=== PATIENT | female | born 1985 | race Caucasian/White ===

== ENCOUNTER 2017-09-04 15:45 | Outpatient (CLI) | payer MEDICAID ==
[~2017-09-04] VITALS: Ht 170.2 cm; Wt 83.2 kg
[~2017-09-04 15:45] MED LIST: ACET1TAB43 PO; ACHD5005 PO; ACHYD1T PO; CELEXA; CIPR500T4 PO; CITA20TA7 PO; CLC500CT PO; CYAN500T2 PO; IBP800T PO; IBUP-1780 PO; MELO7.5T46 PO; MOBIC; NAPR-243 PO; ONDA8TAB6 PO; PEDI100T PO; PREN-115 PO; RNT150T PO
[2017-09-04] MEDS ORDERED: HYDR-3820 PO (16:00)
[2017-09-04] MEDS ORDERED: URSO300C3 PO (16:00)
[2017-09-04] MEDS ORDERED: HYDR-700 PO (16:00)
[2017-09-04] MEDS ORDERED: RANI150T15 PO (16:00)
[2017-09-04] MEDS ORDERED: RIZA5TAB32 PO (16:04)
[2017-09-04 16:05] VITALS: BP 134/86
[2017-09-05] MEDS ORDERED: OXYC-202 PO (11:47)
== END 2017-09-04 16:55 | disposition home or self-care (01) ==
LOC: PREOP 15:45
PROVIDERS: ATTEND Obstetrics & Gynecology
DX: Z01.818 Encounter for other preprocedural examination (principal); Z11.2 Encounter for screening for other bacterial diseases; O32.1XX0 Maternal care for breech presentation, not applicable or unspecified
CPT/HCPCS: 87081

== ENCOUNTER 2017-09-05 05:07 | Inpatient (IN) | payer MEDICAID ==
[~2017-09-05] VITALS: Ht 170.2 cm; Wt 82.3 kg
[~2017-09-05 05:07] MED LIST changes: +HYDR-3820 PO; +HYDR-700 PO; +RANI150T15 PO; +RIZA5TAB32 PO; +URSO300C3 PO
[2017-09-05] MEDS ORDERED: ceFAZolin 2 GM/50 ML NS 50 ML ONE (10:14)
[2017-09-05] MEDS ORDERED: LACTATED RINGERS 1,000 ML IV ONE (10:14)
[2017-09-05] MEDS ORDERED: metroNIDAZOLE 500MG/100ML IVPB 100 ML ONE (10:14)
[2017-09-05] MEDS ORDERED: CITRIC ACID/SOB CIT (BICITRA) 30 ML UDC ONE (10:14)
[2017-09-05] MEDS ORDERED: FAMOTIDINE 20MG/2ML IV (PEPCID) ONE (10:14)
[2017-09-05] MEDS ORDERED: METOCLOPRAMIDE INJ 10 MG/2 ML (REGLAN) ONE (10:14)
[2017-09-05 10:23] VITALS: BP 125/79
[2017-09-05] MEDS ORDERED: ceFAZolin 2 GM/50 ML NS 50 ML IV ONE (11:15)
[2017-09-05] MEDS ORDERED: METOCLOPRAMIDE INJ 10 MG/2 ML (REGLAN) IV ONE (11:15)
[2017-09-05] MEDS ORDERED: CATHETER FLUSH 10 ML SYR IV PRN (11:15)
[2017-09-05] MEDS ORDERED: CITRIC ACID/SOB CIT (BICITRA) 30 ML UDC PO ONE (11:15)
[2017-09-05] MEDS ORDERED: FAMOTIDINE 20MG/2ML IV (PEPCID) IV ONE (11:15)
[2017-09-05] MEDS ORDERED: metroNIDAZOLE 500MG/100ML IVPB 100 ML IV ONE (11:15)
[2017-09-05] MEDS: LACTATED RINGERS 1,000 ML IV PRN ×2 (11:16→11:53)
[2017-09-05 11:44] LABS: BASOPHILS % (AUTO) 0 % (0-10); EOSINOPHILS % (AUTO) 0 % (0-10); LYMPHOCYTES # (AUTO) 3.2 X 10^3 (1.0-4.0); LYMPHOCYTES % (AUTO) 47 % (12-44); MEAN CORPUSCULAR HEMOGLOBIN 31 PG (25-34); MEAN CORPUSCULAR HGB CONC 34 G/DL (32-36); MEAN CORPUSCULAR VOLUME 90 FL (80-99); MEAN PLATELET VOLUME 12.5 FL (7.4-10.4); MONOCYTES # (AUTO) 0.8 X 10^3 (0.0-1.0); MONOCYTES % (AUTO) 11 % (0-12); NEUTROPHILS # (AUTO) 2.8 X 10^3 (1.8-7.8); NEUTROPHILS % (AUTO) 42 % (42-75); PLATELET COUNT 130 10^3/uL (130-400); RED BLOOD COUNT 3.82 10^6/uL (4.35-5.85); RED CELL DISTRIBUTION WIDTH 13.7 % (10.0-14.5); WHITE BLOOD COUNT 6.8 10^3/uL (4.3-11.0)
[2017-09-05] MEDS ORDERED: ONDANSETRON 4 MG/2 ML (SDV) Z0FRAN IVP PRN ×2 (11:45→13:15)
[2017-09-05] MEDS ORDERED: TETANUS,DIPTH,PERTUSS P/F (BOOSTRIX) 0.5 ML VIAL IM ONE (11:45)
[2017-09-05] MEDS ORDERED: PROMETHAZINE INJ 25 MG/ML (PHENERGAN) AMP IM PRN (11:45)
[2017-09-05] MEDS ORDERED: MEPERIDINE (DEMEROL) INJ 100 MG/ML IM PRN (11:45)
[2017-09-05] MEDS ORDERED: MEASLES,MUMPS,RUBELLA 1 EA INJ SC ONE (11:45)
[2017-09-05] MEDS ORDERED: OXYC-202 PO (11:47)
[2017-09-05] MEDS ORDERED: D5 LR IV SOLUTION 1,000 ML IV ONE (11:52)
[2017-09-05] MEDS ORDERED: fentaNYL INJECTION 100 MCG/2 ML AMP ONE (11:55)
--- NOTE | 2017-09-05 11:56 | History & Physical ---
History and Physical Date Seen by Provider: Sep 05, 2017 Time Seen by Provider: 11:50 this patient is a 31-year-old G7 [id number] female with a due date of September 17, 2017. That position at 38 weeks gestation. Her is complicated by hepatitis C with mildly elevated liver enzymes. She had an abnormal tetra test with a DSR of 1 in 30. bunch trimmer mold consult was obtained with the suggestion that this was unlikely to have Down syndrome irritation also has been complicated with polyhydramnios. She presents now for delivery and as her fetus is breech plan is for a primary . GBS culture was negative. Patient denies ruptured membranes or bleeding. Allergies to naproxen haven't patient can take Motrin Medications are vitamins . nausea medicine , Percocet when necessary pain due to poor dentition S medical history, past surgical history, obstetric history, family history, and social issues are present for and recommended HEENT exam is normal Neck is supple no lymphadenopathy no thyromegaly Abdomen gravid soft nontender nondistended Extremities show no clubbing cyanosis. There is no Homans sign. Exam is deferred Bedside ultrasound confirmed breech presentation appearing to be double footling Lab is as follows Laboratory Tests Test 09/05/17 10:20 09/05/17 11:33 Range/Units Urine Opiates Screen NEGATIVE NEGATIVE Urine Oxycodone Screen POSITIVE H NEGATIVE Urine Methadone Screen NEGATIVE NEGATIVE Urine Propoxyphene Screen NEGATIVE NEGATIVE Urine Barbiturates Screen NEGATIVE NEGATIVE Ur Tricyclic Antidepressants Screen NEGATIVE NEGATIVE Urine Phencyclidine Screen NEGATIVE NEGATIVE Urine Amphetamines Screen NEGATIVE NEGATIVE Urine Methamphetamines Screen NEGATIVE NEGATIVE Urine Benzodiazepines Screen NEGATIVE NEGATIVE Urine Cocaine Screen NEGATIVE NEGATIVE Urine Cannabinoids Screen NEGATIVE NEGATIVE White Blood Count 6.8 4.3-11.0 10^3/uL Red Blood Count 3.82 L 4.35-5.85 10^6/uL Hemoglobin 11.7 11.5-16.0 G/DL Hematocrit 34 L 35-52 % Mean Corpuscular Volume 90 80-99 FL Mean Corpuscular Hemoglobin 31 25-34 PG Mean Corpuscular Hemoglobin Concent 34 32-36 G/DL Red Cell Distribution Width 13.7 10.0-14.5 % Platelet Count 130 130-400 10^3/uL Mean Platelet Volume 12.5 H 7.4-10.4 FL Neutrophils (%) (Auto) 42 42-75 % Lymphocytes (%) (Auto) 47 H 12-44 % Monocytes (%) (Auto) 11 0-12 % Eosinophils (%) (Auto) 0 0-10 % Basophils (%) (Auto) 0 0-10 % Neutrophils # (Auto) 2.8 1.8-7.8 X 10^3 Lymphocytes # (Auto) 3.2 1.0-4.0 X 10^3 Monocytes # (Auto) 0.8 0.0-1.0 X 10^3 Eosinophils # (Auto) 0.0 0.0-0.3 10^3/uL Basophils # (Auto) 0.0 0.0-0.1 10^3/uL assessment and plan Term at 38 weeks gestation and complicated by polyhydramnios hepatitis C malpresentation. Patient has requested removal of her fallopian tubes to decrease her lifetime risk for pelvic cancer. Has been fully discussed prior to admission today. Patient does plan the loss of fertility with salpingectomies and she accepts that undesired side effect. 38 week with previous diagnosis of hepatitis C and with breech presentation and unexplained abnormal tetra test Allergies and Home Medications Allergies Coded Allergies: naproxen (Verified Adverse Reaction, Mild, NAUSEA/SHAKEY, 09/04/17) Home Medications Hydroxyzine HCl 25 Mg Tablet, 25 MG PO DAILY, (Reported) Oxycodone HCl/Acetaminophen 1 Each Tablet, 1-2 EACH PO Q4H, (Reported) Ranitidine HCl 150 Mg Tablet, 150 MG PO BID, (Reported) Rizatriptan Benzoate 5 Mg Tablet, 5 MG PO PRN, (Reported) Ursodiol 300 Mg Capsule, 300 MG PO BID, (Reported) JIMMY BERNAL MD Sep 05, 2017 11:56 am
[2017-09-05 12:00] VITALS: BP 130/75
[2017-09-05 12:04] LABS: ALANINE AMINOTRANSFERASE 63 U/L (0-55); ALBUMIN 2.7 GM/DL (3.2-4.5); ANION GAP 7 MMOL/L (5-14); ASPARTATE AMINO TRANSFERASE 156 U/L (5-34); BILIRUBIN,TOTAL 0.6 MG/DL (0.1-1.0); BLOOD UREA NITROGEN 7 MG/DL (7-18); BUN/CREATININE RATIO 14; CALCIUM 8.2 MG/DL (8.5-10.1); CARBON DIOXIDE 22 MMOL/L (21-32); CHLORIDE 108 MMOL/L (98-107); CREATININE SERUM 0.51 MG/DL (0.60-1.30); GFR ESTIMATED > 60; GLUCOSE 68 MG/DL (70-105); POTASSIUM 3.9 MMOL/L (3.6-5.0); SODIUM 137 MMOL/L (135-145); TOTAL PROTEIN 6.5 GM/DL (6.4-8.2)
[2017-09-05] MEDS ORDERED: KETOROLAC 30 MG/ML VIAL ONE ×2 (12:05→12:54)
[2017-09-05] MEDS ORDERED: OXYTOCIN/NORMAL SALINE 500 ML IV ONE (12:05)
[2017-09-05] MEDS ORDERED: ONDANSETRON 4 MG/2 ML (SDV) Z0FRAN ONE ×2 (12:05→12:54)
[2017-09-05] MEDS ORDERED: morphine INJ 10 MG/ML 1ML (SYR OR VIAL) ONE (12:48)
[2017-09-05] MEDS ORDERED: PHENYLEPHRINE 100 MCG/ML 10 ML (ANESTHESIA) SYR ONE (12:54)
[2017-09-05] MEDS ORDERED: diphenhydrAMINE 50 MG/ML INJ (BENADRYL) ONE (12:54)
[2017-09-05] MEDS: KETOROLAC 30 MG/ML VIAL IVP SCH ×2 (13:00→18:57)
[2017-09-05] MEDS: OXYTOCIN/NORMAL SALINE 500 ML IV SCH ×2 (13:00→16:42)
[2017-09-05] MEDS ORDERED: ONDANSETRON 4 MG/2 ML (SDV) Z0FRAN IV PRN (13:15)
[2017-09-05] MEDS ORDERED: METOCLOPRAMIDE INJ 10 MG/2 ML (REGLAN) IV PRN (13:15)
[2017-09-05] MEDS ORDERED: diphenhydrAMINE 50 MG/ML INJ (BENADRYL) IV PRN (13:15)
[2017-09-05] MEDS ORDERED: INFLUENZA TRIvalent 2017-2018 0.5 ML/45 MCG SYR IM ONE (13:15)
[2017-09-05] MEDS ORDERED: NALOXONE 0.4 MG/ML 1 ML (NARCAN) VIAL IV PRN ×2 (13:15)
[2017-09-05 15:45] VITALS: BP 126/71
[2017-09-05] MEDS ORDERED: NICOTINE 21 MG (NICODERM) PATCH TD PRN (16:00)
[2017-09-05] MEDS: oxyCODONE/APAP 10/325MG (PERCOCET 10) TABLET PO PRN (16:42)
[2017-09-05] MEDS ORDERED: NICOTINE PATCH REMOVAL TP PRN (18:00)
[2017-09-05 21:45] VITALS: BP 133/75
--- NOTE | 2017-09-05 22:53 | OPERATIVE REPORT ---
DATE OF SERVICE: 09/05/2017 PREOPERATIVE DIAGNOSIS: Term at 38 weeks' gestation with oligohydramnios, breech presentation, history of Hepatitis C, request for risk reducing salpingectomy. POSTOPERATIVE DIAGNOSIS: Term at 38 weeks' gestation with oligohydramnios, breech presentation, history of Hepatitis C, request for risk reducing salpingectomy. OPERATIVE PROCEDURE: Primary low transverse delivery of a viable male with Apgars of 8 and 8 at 1 and 5 minutes respectively. Weight is 6 pounds 7 ounces. Cord blood pH of 7.32 and a time 1224 as well as bilateral salpingectomies for reduction of ovarian cancer risk. OPERATIVE DESCRIPTION: With the patient in supine position under satisfactory spinal anesthesia, she was prepped and draped in the usual fashion for abdominal surgery. Torre catheter was placed in the urinary bladder and left to dependent drainage. A Pfannenstiel incision made through the skin with a scalpel. The patient's abdomen entered in the usual manner. Bladder retractor placed in position, clean scalpel used to make a 4 cm hysterotomy incision transversally across the lower uterine segment that was extended by blunt dissection as well. A small amount of fairly moderately meconium stained fluid was released on hysterotomy. A vigorous viable male infant was delivered via the uterine incision from a robyn breech position in the usual manner for that delivery. The delivery was atraumatic. The infant was bulb suctioned on delivery, the cord was doubly clamped and cut and the passed to the pediatric nurse in attendance for delivery. Cord bloods were obtained. The placenta delivered spontaneously Verdin. It was normal with a 3-vessel cord. The uterus was exteriorized anterior and wiped clean with a wet laparotomy sponge. Uterine incision closed with a running lock suture of 2-0 Vicryl. Hemostasis was complete. The patient had requested that her fallopian tube be removed concurrent with this procedure as the opportunity presented itself for risk reducing salpingectomy. That had been fully discussed and the patient did at this point request that we proceed. The left fallopian tube was grasped and elevated. The mesosalpinx was divided with electrocautery and then the proximal tube was ligated with a 2-0 chromic gut suture. The distal attachment to the ovary was ligated in the same manner. Then, the fallopian tube was removed sharply and sent to pathology labeled appropriately for permanent section. The same procedure was performed on the right with the same result. The uterus was now returned to the abdominal cavity. All blood clot and debris removed from the abdominal cavity. Sponge and needle counts correct, hemostasis assured. The anterior parietal peritoneum was closed with a running suture of 2-0 Vicryl. Rectus muscles were closed with that suture as well rectus fascia was closed with 2-0 Vicryl, subcutaneous tissue with 2-0 Vicryl and the skin was stapled. Sponge and needle counts were correct. At the end of the procedure estimated blood loss for procedure was around 400 mL. The patient tolerated the procedure well and was transferred to the recovery room in stable condition. The had been taken stable to the full term nursery under the care of the pediatric nurse. Job ID: [id number] DocumentID: [id number] Dictated Date: 09/05/2017 13:33:28 Grooming Assistant Date: 09/05/2017 22:52:58 Dictated By: JIMMY BERNAL MD
[2017-09-06 00:40] VITALS: BP 124/77
[2017-09-06] MEDS: oxyCODONE/APAP 10/325MG (PERCOCET 10) TABLET PO PRN ×4 (00:45→21:35)
[2017-09-06] MEDS: KETOROLAC 30 MG/ML VIAL IVP SCH (00:45)
[2017-09-06] MEDS: DOCUSATE SODIUM 100 MG (COLACE) CAP PO SCH ×3 (00:45→21:34)
[2017-09-06 05:30] VITALS: BP 139/78
[2017-09-06] MEDS ORDERED: IBUPROFEN 800 MG (MOTRIN) TAB PO ONE (07:00)
[2017-09-06] MEDS: IBUPROFEN 800 MG (MOTRIN) TAB PO SCH ×3 (07:02→21:34)
--- NOTE | 2017-09-06 07:55 | Progress Note-Standard ---
Standard Progress Note Progress Notes/Assess & Plan Date Seen by Provider: Sep 06, 2017 Time Seen by Provider: 07:53 Progress/Assessment & Plan this patient is without complaint. She is ablating, voiding, tolerating by mouth, has good pain control. She she does have some chest pain as is common after , denies shortness of breath, denies nausea vomiting, denies headache. Vital Signs Date Time Temp Pulse Resp B/P (MAP) Pulse Ox O2 Delivery O2 Flow Rate FiO2 09/06/17 05:30 97.9 65 18 139/78 (98) 97 Room Air 09/06/17 00:40 98.1 78 18 124/77 (93) 97 Room Air 09/05/17 21:45 98.6 80 18 133/75 (94) 97 Room Air 09/05/17 16:19 Room Air 09/05/17 15:45 99.2 72 18 126/71 (89) Room Air 09/05/17 12:00 74 18 130/75 (93) Room Air 09/05/17 10:23 98.2 77 18 125/79 (94) Room Air I & O 09/06/17 07:00 Intake Total 2755 ml Output Total 2050 ml Balance 705 ml vital signs are stable. Patient is afebrile. The abdomen is benign. The surgical incision is clean dry and intact. Extremities show clubbing cyanosis. There is no Homans sign. Assessment and plan postoperative day number 1 status post primary delivery doing well plan is for routine convalescence care today JIMMY BERNAL MD Sep 06, 2017 7:55 am
[2017-09-06 09:01] VITALS: BP 142/72
[2017-09-06 12:44] VITALS: BP 140/81
--- NOTE | 2017-09-06 13:24 | Anesthesia-Regional Post-Op ---
Regional Patient Condition Mental Status: Alert, Oriented x3 Circulation: Same as Pre-Op Headache: Absent Sensation: Full Recovery Motor Block: Absent Post Op Complications Complications None Follow Up Care/Instructions Patient Instructions None needed. Anesthesia/Patient Condition Patient is doing well, no complaints, stable vital signs, no apparent adverse anesthesia problems. No complications reported per nursing. MICHELLE PATE CRNA Sep 06, 2017 13:24
[2017-09-06 14:40] VITALS: BP 128/82
[2017-09-06 21:30] VITALS: BP 136/78
[2017-09-07 03:55] VITALS: BP 131/74
[2017-09-07] MEDS: IBUPROFEN 800 MG (MOTRIN) TAB PO SCH ×2 (03:57→14:51)
[2017-09-07 08:00] VITALS: BP 128/70
--- NOTE | 2017-09-07 08:16 | Progress Note-Standard ---
Standard Progress Note Progress Notes/Assess & Plan Date Seen by Provider: Sep 07, 2017 Time Seen by Provider: 08:15 Progress/Assessment & Plan this patient is without complaint. She is ablating, voiding, tolerating by mouth, has good pain control. She she does have some chest pain as is common after , denies shortness of breath, denies nausea vomiting, denies headache. Vital Signs Date Time Temp Pulse Resp B/P (MAP) Pulse Ox O2 Delivery O2 Flow Rate FiO2 09/06/17 05:30 97.9 65 18 139/78 (98) 97 Room Air 09/06/17 00:40 98.1 78 18 124/77 (93) 97 Room Air 09/05/17 21:45 98.6 80 18 133/75 (94) 97 Room Air 09/05/17 16:19 Room Air 09/05/17 15:45 99.2 72 18 126/71 (89) Room Air 09/05/17 12:00 74 18 130/75 (93) Room Air 09/05/17 10:23 98.2 77 18 125/79 (94) Room Air I & O 09/06/17 07:00 Intake Total 2755 ml Output Total 2050 ml Balance 705 ml vital signs are stable. Patient is afebrile. The abdomen is benign. The surgical incision is clean dry and intact. Extremities show clubbing cyanosis. There is no Homans sign. Assessment and plan postoperative day number 1 status post primary delivery doing well plan is for routine convalescence care today September 07, 2017 Patient without complaint. She is requesting discharge home. Vital Signs Date Time Temp Pulse Resp B/P (MAP) Pulse Ox O2 Delivery O2 Flow Rate FiO2 09/07/17 03:55 97.6 81 18 131/74 (93) 99 Room Air 09/06/17 21:30 98.0 73 18 136/78 (97) 99 Room Air 09/06/17 14:40 97.6 70 18 128/82 (97) 97 Room Air 09/06/17 12:44 97.6 70 20 140/81 (100) 98 Room Air 09/06/17 09:01 98.6 72 18 142/72 (95) 99 Room Air Vital signs are stable. Patient is afebrile. Fundus is firm below the umbilicus and nontender. The incision is clean dry and intact. Extremities show no clubbing or cyanosis. There is no Homans sign. Assessment and plan postoperative day number 2 status post repeat and RRS doing well. Plan is for discharge home JIMMY BERNAL MD Sep 07, 2017 8:16 am
[2017-09-07] MEDS ORDERED: DOCU100C37 PO (08:17)
[2017-09-07] MEDS ORDERED: IBUP-1780 PO (08:17)
[2017-09-07] MEDS ORDERED: OXYC-465 PO (08:17)
--- NOTE | 2017-09-07 08:19 | Discharge Instructions ---
Discharge Instructions Discharge Medications New, Converted or Re-Newed RX: RX on Chart Patient Instructions Patient Instructions: as directed Return to The Hospital For: as directed Activity & Diet Discharge Diet: No Restrictions Activity as Tolerated: No Orders-Post D/C & Referrals Follow Up Appt: RTC on , September 13, 2017 at 930 a.m. for incision check. Call to make follow up appt. for patient in 4 weeks. follow-up with PCP in 1 month's for management of hepatitis Wound Care: Remove brennan, apply benzoin and steri strips. Activity Per routine post instructions. Please call in RX to patient pharmacy. Diet as tolerated Patient may shower or tub bathe as desired. Continue home meds JIMMY BERNAL MD Sep 07, 2017 8:19 am
[2017-09-07] MEDS ORDERED: INFLUENZA TRIvalent 2017-2018 0.5 ML/45 MCG SYR IM ONE (08:48)
[2017-09-07] MEDS ORDERED: TETANUS,DIPTH,PERTUSS P/F (BOOSTRIX) 0.5 ML VIAL IM ONE (08:49)
[2017-09-07] MEDS: DOCUSATE SODIUM 100 MG (COLACE) CAP PO SCH (09:03)
[2017-09-07] MEDS: oxyCODONE/APAP 10/325MG (PERCOCET 10) TABLET PO PRN ×2 (09:04→14:59)
[2017-09-07 14:30] VITALS: BP 141/80
[2017-09-07 18:15] VITALS: BP 141/80
== END 2017-09-07 18:15 | disposition home or self-care (01) | DRG 765 ==
LOC: LDRP 10:08
PROVIDERS: ADMIT Obstetrics & Gynecology; ATTEND Obstetrics & Gynecology
PROC: 0UT70ZZ Resection of Bilateral Fallopian Tubes, Open Approach (ICD-10-PCS; 2017-09-05)
PROC: 10D00Z1 Extraction of Products of Conception, Low, Open Approach (ICD-10-PCS; principal; 2017-09-05 12:03)
DX: O41.03X0 Oligohydramnios, third trimester, not applicable or unspecified (principal); O98.43 Viral hepatitis complicating the puerperium; O64.8XX0 Obstructed labor due to other malposition and malpresentation, not applicable or unspecified; B19.20 Unspecified viral hepatitis C without hepatic coma; Z3A.38 38 weeks gestation of pregnancy; Z37.0 Single live birth; Z23 Encounter for immunization
CPT/HCPCS: 36415; 80053; 80306; 85025; 86850; 86900; 86901; 90715; 94664

== ENCOUNTER 2018-08-02 11:53 | Emergency (ER) | payer MEDICAID ==
[~2018-08-02] VITALS: Ht 170.2 cm; Wt 66.0 kg
[~2018-08-02 11:53] MED LIST changes: +CEPH500T PO; -CITA20TA7 PO; +CITA20TA9 PO; +DOCU100C37 PO; +OXYC-465 PO; +OXYC1TAB12 PO; -RANI150T15 PO; +RANI150T46 PO
[2018-08-02] MEDS ORDERED: NS IV 1000 ML 1,000 ML IV STA (12:43)
--- NOTE | 2018-08-02 12:57 | ED Headache ---
General Chief Complaint: Head/Cervical Problems Stated Complaint: MIGRAINE Nursing Triage Note: PT STATES HX OF MIGRAINES, HEADACHE SINCE 0800 THIS A.M. NORMALLY DOES NOT COME TO THE ER, PAIN IN THE BACK OF HER NECK AND TEMPLES, N/V. Nursing Sepsis Screen: No Definite Risk Source: patient Exam Limitations: no limitations History of Present Illness Date Seen by Provider: Aug 02, 2018 Time Seen by Provider: 12:56 Initial Comments To ER with reports of left-sided headache in the congregational and neck. Typically her headaches are only in the congregational. She does have associated photophobia and nausea and vomiting. She tried her Imitrex at home without relief. Timing/Duration: 4-6 hours Severity/Quality: moderate Location: temporal, other Associated Symptoms: nausea/vomiting Allergies and Home Medications Allergies Coded Allergies: naproxen (Verified Adverse Reaction, Mild, NAUSEA/SHAKEY, 09/04/17) Home Medications Cephalexin 500 Mg Tablet, 500 MG PO BID Prescribed by: NAVYA LO on 05/10/18 2333 Docusate Sodium 100 Mg Capsule, 100 MG PO BID Prescribed by: JIMMY BRANTLEY on 09/07/17 0817 Hydroxyzine HCl 25 Mg Tablet, 25 MG PO DAILY, (Reported) Ibuprofen 800 Mg Tablet, 800 MG PO Q6H Prescribed by: JIMMY BRANTLEY on 09/07/17 0817 Oxycodone HCl/Acetaminophen 1 Each Tablet, 1-2 TAB PO Q4HR PRN for PAIN- MODERATE TO SEVERE Prescribed by: JIMMY BRANTLEY on 09/07/17 0817 Ranitidine HCl 150 Mg Tablet, 150 MG PO BID, (Reported) Rizatriptan Benzoate 5 Mg Tablet, 5 MG PO PRN, (Reported) Patient Home Medication List Home Medication List Reviewed: Yes Review of Systems Review of Systems Constitutional: see HPI Eyes: No Symptoms Reported Ears, Nose, Mouth, Throat: no symptoms reported Respiratory: no symptoms reported Cardiovascular: no symptoms reported Gastrointestinal: nausea, vomiting Genitourinary: no symptoms reported Psychiatric/Neurological: Headache Past Slkrrai-Scueat-Gzcnrf Hx Patient Social History Alcohol Use: Denies Use Recreational Drug Use: No Type Used: Cigarettes Recent Foreign Travel: No Contact w/Someone Who Travel: No Recent Infectious Disease Expo: No Recent Hopitalizations: No Immunizations Up To Date Tetanus Booster (TDap): Unknown PED Vaccines UTD: Yes Date of Influenza Vaccine: Sep 07, 2017 Seasonal Allergies Seasonal Allergies: No Past Medical History Surgeries: Yes Adenoidectomy, Appendectomy, Section, Tonsillectomy Respiratory: No Currently Using CPAP: No Currently Using BIPAP: No Cardiac: No Neurological: Yes Headaches /Migraines : No Last Menstrual Period: Jul 17, 2018 Reproductive Disorders: No Female Reproductive Disorders: Denies Sexually Transmitted Disease: No HIV/AIDS: No Genitourinary: Yes (HX SEPSIS 2016) Kidney Infection Gastrointestinal: Yes (HEPATITIS C) Gastroesophageal Reflux, Chronic Constipation, Hepatitis Musculoskeletal: Yes Scoliosis, Chronic Back Pain Endocrine: No HEENT: Yes (GLASSES) Loss of Vision: Denies Hearing Impairment: Denies Cancer: No Psychosocial: Yes Anxiety, Depression Integumentary: No Blood Disorders: No Adverse Reaction/Blood Tranf: No (N/A) Family Medical History Asthma 19 MOTHER G8 SISTER Cancer of mouth maternal grandma Cardiovascular disease maternal grandma maternal grandpa Cataracts 19 MOTHER paternal grandma Colon cancer maternal grandma maternal grandpa Completed stroke 19 MOTHER Diabetes mellitus maternal grandma Drug abuse G8 BROTHER G8 SISTER Headache disorder G8 SISTER Hypercholesterolemia maternal grandma Hypertension maternal grandma Infertility Kidney disease 19 MOTHER Myocardial infarction 19 FATHER Neoplasm maternal grandma maternal grandpa paternal grandpa Parkinson's disease 19 FATHER 19 MOTHER Psychosocial problem G8 SISTER Respiratory disorder 19 FATHER 19 MOTHER G8 SISTER Seizure disorder G8 BROTHER No Pertinent Family Hx Physical Exam Vital Signs Vital Signs - First Documented 08/02/18 12:29 Temp 96.6 Pulse 93 Resp 20 B/P (MAP) 155/111 (126) Pulse Ox 100 O2 Delivery Room Air Capillary Refill : Less Than 3 Seconds Height, Weight, BMI Height: 5'7.00" Weight: 145lbs. 8.0oz. 65.052592qw; 28.4 BMI Method:Stated General Appearance: WD/WN, no apparent distress HEENT: PERRL/EOMI, normal ENT inspection, TMs normal Neck: non-tender, full range of motion Respiratory: normal breath sounds, no respiratory distress, no accessory muscle use Gastrointestinal: normal bowel sounds, non tender Extremities: normal range of motion, non-tender Psychiatric: alert, oriented x 3 Crainal Nerves: normal hearing, normal speech, PERRL Motor/Sensory: no motor deficit, no sensory deficit Skin: normal color, warm/dry Progress/Results/Core Measures Results/Orders My Orders Orders - KEERTHI DANIELS APRN Ketorolac Injection (Toradol Injection) (08/02/18 13:00) Prochlorperazine Injection (Compazine In (08/02/18 13:00) Diphenhydramine Injection (Benadryl Inje (08/02/18 13:00) Normal Saline Bolus 1,000ml (08/02/18 13:00) Iv Heplock-Insert (Order) (08/02/18 12:54) Vital Signs/I&O 08/02/18 12:29 Temp 96.6 Pulse 93 Resp 20 B/P (MAP) 155/111 (126) Pulse Ox 100 O2 Delivery Room Air Blood Pressure Mean: 126 Departure Impression Primary Impression: Headache Qualified Codes: R51 - Headache Disposition: 01 HOME, SELF-CARE Condition: Stable Departure-Patient Inst. Decision time for Depature: 12:57 Referrals: [facility] (PCP/Family) Primary Care Physician Patient Instructions: Headache, Adult (DC) Add. Discharge Instructions: 1. Return to ER for any concerns All discharge instructions reviewed with patient and/or family. Voiced understanding. KEERTHI DANIELS APRN Aug 02, 2018 12:57
[2018-08-02] MEDS ORDERED: diphenhydrAMINE 50 MG/ML INJ (BENADRYL) IVP ONE (13:00)
[2018-08-02] MEDS ORDERED: PROCHLORPERAZINE 10 MG/2ML INJ (COMPAZINE) IV ONE (13:00)
[2018-08-02] MEDS ORDERED: KETOROLAC 30 MG/ML VIAL IVP ONE (13:00)
[2018-08-02] MEDS ORDERED: NS IV 1000 ML 1,000 ML IV SCH (13:00)
[2018-08-02 14:35] VITALS: BP 118/50
== END 2018-08-02 14:35 | disposition home or self-care (01) ==
LOC: EDUNIT# 11:53 → ER 11:56
DX: R51 Headache (principal); K21.9 Gastro-esophageal reflux disease without esophagitis; F41.9 Anxiety disorder, unspecified; F32.9 Major depressive disorder, single episode, unspecified; B19.20 Unspecified viral hepatitis C without hepatic coma; Z80.0 Family history of malignant neoplasm of digestive organs; Z82.49 Family history of ischemic heart disease and other diseases of the circulatory system; Z88.8 Allergy status to other drugs, medicaments and biological substances; Z90.89 Acquired absence of other organs; Z98.890 Other specified postprocedural states; Z86.19 Personal history of other infectious and parasitic diseases; Z87.448 Personal history of other diseases of urinary system

== ENCOUNTER 2020-12-29 07:00 | Outpatient (CLI) | payer OTHER ==
[~2020-12-29] VITALS: Ht 170.2 cm; Wt 66.7 kg
[~2020-12-29 07:00] MED LIST changes: -CIPR500T4 PO; +CIPR500T5 PO; -CYAN500T2 PO; +CYAN500T8 PO; -HYDR-3820 PO; -OXYC-465 PO; +OXYC-556 PO; +RANI-613 PO; -RANI150T46 PO
[2020-12-29] MEDS ORDERED: VENL100T2 PO (15:00)
[2020-12-29] MEDS ORDERED: PANT40TA52 PO (15:00)
[2021-01-05] MEDS ORDERED: ACHD5005 PO (10:17)
== END 2020-12-29 15:03 | disposition home or self-care (01) ==
LOC: PREOP 07:00
PROVIDERS: ATTEND Surgery
DX: Z01.818 Encounter for other preprocedural examination (principal)

== ENCOUNTER 2021-01-05 08:23 | Day surgery (SDC) | payer MEDICAID, OTHER ==
[2021-01-05] VITALS (10 sets, daily range): BP systolic 116–154; BP diastolic 57–108
[~2021-01-05] VITALS: Ht 170 cm; Wt 66.7 kg
[~2021-01-05 08:23] MED LIST changes: +PANT40TA52 PO; +VENL100T2 PO
[2021-01-05] MEDS ORDERED: ceFAZolin 2 GM IV Premixed 50 ML IV ONE (08:30)
[2021-01-05] MEDS ORDERED: LACTATED RINGERS 1,000 ML IV PRN (08:30)
[2021-01-05] MEDS ORDERED: IOPAMIDOL 61% 30 ML (ISOVUE 300) VIAL ONE (08:40)
[2021-01-05] MEDS ORDERED: LIDOCAINE/EPI 1%-1:100,000 (XYLOCAINE) 20ML ONE (08:40)
--- NOTE | 2021-01-05 09:09 | Progress Note-Pre Operative ---
Pre-Operative Progress Note H&P Reviewed The H&P was reviewed, patient examined and no changes noted. Time Seen by Provider: 09:07 Date H&P Reviewed: Jan 05, 2021 Time H&P Reviewed: 09:07 Pre-Operative Diagnosis: cholelithiasis/cholecystitis CHANTEL JENSEN DO Jan 05, 2021 09:09
[2021-01-05] MEDS ORDERED: LIDOCAINE PF 2% 5 ML (XYLOCAINE) VIAL ONE (09:15)
[2021-01-05] MEDS ORDERED: ONDANSETRON 4 MG/2 ML (SDV) Z0FRAN ONE (09:15)
[2021-01-05] MEDS ORDERED: proPOfol 200 MG/20 ML (DIPRIVAN) VIAL IV ONE (09:15)
[2021-01-05] MEDS ORDERED: SEVOFLURANE (ULTANE) 15 ML INHAL SOLN ONE (09:15)
[2021-01-05] MEDS ORDERED: MIDAZOLAM 2 MG/2 ML (VERSED) VIAL ONE (09:15)
[2021-01-05] MEDS ORDERED: GLYCOPYRROLATE 0.2 MG/ML (ROBINUL) 2 ML VIAL ONE (09:15)
[2021-01-05] MEDS ORDERED: fentaNYL INJ 100 MCG/2 ML AMP ONE (09:15)
[2021-01-05] MEDS ORDERED: NEOSTIGMINE 3 MG/3 ML VIAL ONE (09:15)
[2021-01-05] MEDS ORDERED: ROCURONIUM 10 MG/ML 5 ML SYRINGE IV ONE (09:15)
[2021-01-05] MEDS ORDERED: HYDROmorphone 2 MG/ML VIAL (DILAUDID) ONE (09:50)
--- NOTE | 2021-01-05 10:16 | Progress Note-Post Operative ---
Post-Operative Progess Note Surgeon (s)/House Cleaner Supervisor (s) Surgeon CHANTEL JENSEN DO House Cleaner Supervisor: Gelacio Pre-Operative Diagnosis cholelithiasis/cholecystitis Post-Operative Diagnosis same pending path Procedure & Operative Findings Date of Procedure 01/05/21 Procedure Performed/Findings PROCEDURE: Laparoscopic cholecystectomy with intraoperative cholangiogram. COMPLICATIONS: None. PROCEDURE: The patient was taken to the operating suite and was prepped and draped in sterile fashion. A surgical pause was performed. Just inferior to the umbilicus, a 12 mm incision was made. Dissection was taken down to the fascia, which was then scored and grasped with a Adrian and the abdomen was then entered. A 0 Vicryl suture was placed in a [id number] fashion and a Lane trocar was placed and secured. Pneumoperitoneum was achieved. A 5mm trochar place in the subxyphoid and 2 in the right upper quadrant. The gallbladder was then grasped and elevated. The cystic duct, and cystic artery were then dissected out. Clip was placed on the distal portion of the cystic duct which was then partially transected. An arrow catheter was inserted into the duct. The cholangiogram was then performed. No filing defects and contrast made its way into the duodenum. Catheter removed. Clips were placed on proximal portion of the cystic duct and then the duct was then transected. Clips were placed along the proximal and distal portion of the cystic artery which was then transected. Hook cautery was used to dissect the gallbladder from the gallbladder fossa achieving hemostasis. The gallbladder was placed in an Endobag and removed through the 12 mm trocar site. The abdomen was then reinspected. Copious amounts of irrigation were used to irrigate the abdomen and there were no signs of active bleeding. Hemostasis had been achieved. The 12 mm fascial defect was then closed with 0 Vicryl suture that had been placed in a [id number] fashion. The abdomen was then desufflated, the trocars were removed. The abdomen was then washed and dried. The skin was then closed using 4-0 Monocryl in a subcuticular fashion. The abdomen was washed and dried and Skin Affix was place over incisions. Patient tolerated the procedure well without any complications and was taken to the recovery room in stable condition. Dr. Brizuela assisted on this case helping to make incisions, close incisions, identify anatomy and hold anatomy out of the way. Anesthesia Type GET Estimated Blood Loss Estimated blood loss (mL): scant Specimens/Packing Specimens Removed GB and contents CHANTEL JENSEN DO Jan 05, 2021 10:16
[2021-01-05] MEDS ORDERED: ACHD5005 PO (10:17)
--- NOTE | 2021-01-05 10:18 | Discharge Inst-Surgical ---
Discharge Inst-Surgical Depart Medication/Instructions New, Converted or Re-Newed RX: RX Given to Pt/Family Patient Instructions Follow up Appt: Make appointment for 1 week. [phone] Instructions: No lifting greater than 20 pounds. No strenuous activity. May shower in 24 hours, no tub bath or soaking. Use incentive spirometer at home as directed. No Smoking Skin/Wound Care: May remove bandages in am. You need to leave the Dermabond on incision it will fall off on it's own. Symptoms to Report: Appetite Changes, Extremity Discoloration, Numbness/Tingling, Swelling Increased, Bleeding Excessive, Eyesight Changes, Pain Increased, Urine Color Change, Constipation(Persistent), Fever over 101 degree F, Pain/Pressure in chest, Urinating Difficulty, Cough Up/Vomit Blood, Heart Beat Irreg/Pounding, Pain/Pressure in jaw, Cramps in feet or legs, Lightheadedness, Pain/Pressure in shoulder, Diarrhea(Persistent), Memory Changes Suddenly, Questions/Concerns, Weight gain consecutive days, Dizziness/Fainting, Nausea/Vomiting, Shortness of Breath, Weight gain over 2 pounds If questions or concerns contact your physician Or seek help at emergency department. Activity Activity as Tolerated: Yes Activity Instructions: Avoid Stress to Incision Driving Instructions: No Driving/Refer to Diet Discharge Diet: Avoid Fatty Foods, Low Fat/Low Cholesterol If Any Problems/Questions/Issu: Contact Your Physician, Go to Emergency Room Skin/Wound Care Infection Signs and Symptoms: Increased Redness, Foul Odor of Wound, Increased Drainage, Skin Itchy or Has a Rash, Increased Swelling, Temperature Above 101 F Wound Care Comment: heating pad to shoulder or neck for pain tonight Bathing Instructions: Shower Stitches/Rosi/Dermabond Dis: Dermabond Ice Pack: Ice On and Off Site CHANTEL JENSEN DO Jan 05, 2021 10:18
[2021-01-05] MEDS ORDERED: PROMETHAZINE INJ 25 MG/ML (PHENERGAN) AMP ONE (10:30)
[2021-01-05] MEDS ORDERED: PROMETHAZINE INJ 25 MG/ML (PHENERGAN) AMP IVP ONE (10:45)
[2021-01-05] MEDS ORDERED: ONDANSETRON 4 MG/2 ML (SDV) Z0FRAN IVP PRN (10:45)
[2021-01-05] MEDS ORDERED: morphine INJ 10 MG/ML 1ML (SYR OR VIAL) IVP ONE (10:45)
[2021-01-05] MEDS ORDERED: HYDROmorphone 2 MG/ML VIAL (DILAUDID) IV ONE (10:45)
--- NOTE | 2021-01-05 11:28 | Anesthesia-General Post-Op ---
General Patient Condition Mental Status/LOC: Same as Preop Cardiovascular: Satisfactory Nausea/Vomiting: Absent Respiratory: Satisfactory Pain: Controlled Complications: Absent Post Op Complications Complications None Follow Up Care/Instructions Patient Instructions None needed. Anesthesia/Patient Condition Patient Condition Patient is doing well, C/O abdominal pain which is to be expected, stable vital signs, no apparent adverse anesthesia problems. She did experience some significant emergence delirium in PACU, but was stable for her entire PACU stay. PATO PHILLIPS DO Jan 05, 2021 11:27
[2021-01-05] MEDS ORDERED: HYDROcodone /IBUPROFEN (VICOPROFEN) 7.5 MG/ 200 MG TAB PO ONE (11:30)
--- NOTE | 2021-01-05 18:45 | Diagnostic Imaging Report ---
INDICATION: Laparoscopic cholecystectomy. 10 seconds of actual fluoroscopy time were utilized during intraoperative cholangiography. Submitted images showed contrast filling through the nondilated extrahepatic duct into the duodenum with some reflux into the central nondilated intrahepatic biliary ducts. A small mobile filling defect observed is likely an air bubble but correlate with the real-time fluoroscopic imaging. IMPRESSION: No definite pathological finding at images submitted from intraoperative cholangiography, probable air bubble noted. Dictated by: Dictated on workstation # [id number]
== END 2021-01-05 12:50 ==
LOC: SDC 08:23
PROVIDERS: ATTEND Surgery
DX: K80.10 Calculus of gallbladder with chronic cholecystitis without obstruction (principal); Z88.5 Allergy status to narcotic agent; F32.9 Major depressive disorder, single episode, unspecified; K21.9 Gastro-esophageal reflux disease without esophagitis; F17.210 Nicotine dependence, cigarettes, uncomplicated; Z79.899 Other long term (current) drug therapy; F41.9 Anxiety disorder, unspecified; Z83.3 Family history of diabetes mellitus
CPT/HCPCS: 76000; 84703; 87081; 88304